=== PATIENT | male | born 1995 | race Caucasian/White ===

== ENCOUNTER 2016-04-11 06:41 | Emergency (ER) | payer BC, OTHER ==
[~2016-04-11] VITALS: Ht 182.9 cm; Wt 63.5 kg
[2016-04-11 06:46] VITALS: TEMP 36.4; Ht 182.9 cm; Wt 63.5 kg
[2016-04-11] MEDS ORDERED: SODIUM CHLORIDE 0.9% 1000ML 1,000 ML IV STA (07:15)
--- NOTE | 2016-04-11 07:21 | EMERGENCY ROOM VISIT NOTE ---
History First contact with patient: 06:54 Chief Complaint: ABDOMINAL PAIN Stated Complaint: ABDOMINAL PAIN Nursing Triage Summary: patient presents with c/o generalized abdominal pain/discomfort that began yesterday . worsened this morning at 0600. denies any nausea/vomiting. History of Present Illness The patient is a 20 year old male who presents to the Emergency Room with complaints of abdominal pain. The patient states that he has had diffuse, intermittent sharp pain in the abdomen since yesterday. He states that the pain lasts 1-2 seconds at a time. He states that the pain is rated a 10/10 at its worst and currently an 8/10. The patient states that he tried a probiotic and gas ex. He reports having similar episodes every 2-3 months. He states he has had imaging but nothing has ever been found. He has not ever had a colonoscopy. He denies any fevers, chills, ear ache or sore throat. He denies any pain in his chest or trouble breathing. He denies any nausea, vomiting, hematemesis, hematochezia. He denies any diarrhea. He states that his urine appeared orange on Sunday but that has resolved. The patient has a history of constipation as a child. He states that his last bowel movement was 2 days ago. Review of Systems A 10 system review of systems was completed with positives and pertinent negatives listed in the HPI. Past Medical/Surgical History Medical Problems: (1) Anxiety (2) Depression (3) Insomnia Family History Cancer Diabetes mellitus FHx: gallbladder disease Heart disease Hypertension Kidney disease Kidney stones Lung disease Social History Smoking Status: Never Smoker Drug Use: none Marital Status: single Housing Status: lives with roommate Occupation Status: [employer] student Current/Historical Medications No Active Prescriptions or Reported Meds Allergies Coded Allergies: Amoxicillin (Verified Allergy, Unknown, Neuro Symptoms, 04/11/16) Clavulanic Acid (Verified Allergy, Unknown, Neuro Symptoms, 04/11/16) Physical Exam Vital Signs Date Time Temp Pulse Resp B/P Pulse Ox O2 Delivery O2 Flow Rate FiO2 04/11/16 08:54 57 16 135/79 95 Room Air 04/11/16 08:03 54 16 132/84 100 Room Air 04/11/16 06:46 36.4 103 20 138/90 98 Room Air Physical Exam VITALS: Vitals are noted on the nurse's note and reviewed by myself. Vital signs stable. The patient is afebrile. GENERAL: This is a 20-year-old male, in no acute distress, nondiaphoretic, well- developed well-nourished. SKIN: The skin was without rashes, erythema, edema, or bruising. There is no tenting of the skin. Capillary reflex less than 2 seconds. HEAD: Normocephalic atraumatic. EARS: The external ears are normal in appearance. EYES: Pupils equal round and reactive to light and accommodation. Conjunctivae without injection, sclerae without icterus. Extraocular movements intact. NOSE: Patent, turbinates without inflammation or discharge. MOUTH: Mucous membranes moist. Tonsils are not enlarged. Pharynx without erythema or exudate. Uvula midline. Airway patent. Tongue does not deviate. NECK: Supple without nuchal rigidity. No JVD. HEART: Regular rate and rhythm without murmurs gallops or rubs. LUNGS: Clear to auscultation bilaterally without wheezes, rales or rhonchi.No retractions or accessory muscle use. ABDOMEN: Positive bowel sounds x 4. Soft, mild diffuse lower abdominal tenderness, without masses or organomegaly. Hinson sign negative. MUSCULOSKELETAL: No muscle atrophy, erythema, or edema noted. Full range of motion in all extremities. Normal gait. Strength 5/5 throughout. NEURO: Patient was alert and oriented to person place and time. No focal neurological deficits. Medical Decision & Procedures ER Provider Diagnostic Interpretation: PA CHEST RADIOGRAPH AND UPRIGHT AND SUPINE AP RADIOGRAPHS OF THE ABDOMEN CLINICAL HISTORY: Abdominal pain. COMPARISON STUDY: Chest radiograph December 26, 2015. FINDINGS: Lung volumes are normal. Lungs are clear. There is no pneumothorax or pleural effusion. Cardiac size is normal. Mediastinal contours are normal. There is no evidence of pulmonary edema. There is no free air. The bowel gas pattern is normal. There is a moderate amount of stool within the colon. IMPRESSION: 1. No free air or evidence of bowel obstruction. 2. Moderate amount of stool within the colon. 3. No acute cardiopulmonary findings. Laboratory Results 04/11/16 07:21 Red Blood Count 5.22, Mean Corpuscular Volume 86.8, Mean Corpuscular Hemoglobin 30.8, Mean Corpuscular Hemoglobin Concent 35.5, Mean Platelet Volume 10.2, Neutrophils (%) (Auto) 75.6, Lymphocytes (%) (Auto) 12.9, Monocytes (%) (Auto) 9.9, Eosinophils (%) (Auto) 1.0, Basophils (%) (Auto) 0.2, Neutrophils # (Auto) 6.36, Lymphocytes # (Auto) 1.08, Monocytes # (Auto) 0.83, Eosinophils # (Auto) 0.08, Basophils # (Auto) 0.02 04/11/16 07:21 Test 04/11/16 07:21 04/11/16 07:22 04/11/16 08:18 White Blood Count 8.40 K/uL (4.8-10.8) Red Blood Count 5.22 M/uL (4.7-6.1) Hemoglobin 16.1 g/dL (14.0-18.0) Hematocrit 45.3 % (42-52) Mean Corpuscular Volume 86.8 fL (80-100) Mean Corpuscular Hemoglobin 30.8 pg (25-34) Mean Corpuscular Hemoglobin Concent 35.5 g/dl (32-36) Platelet Count 165 K/uL (130-400) Mean Platelet Volume 10.2 fL (7.4-10.4) Neutrophils (%) (Auto) 75.6 % Lymphocytes (%) (Auto) 12.9 % Monocytes (%) (Auto) 9.9 % Eosinophils (%) (Auto) 1.0 % Basophils (%) (Auto) 0.2 % Neutrophils # (Auto) 6.36 K/uL (1.4-6.5) Lymphocytes # (Auto) 1.08 K/uL (1.2-3.4) Monocytes # (Auto) 0.83 K/uL (0.11-0.59) Eosinophils # (Auto) 0.08 K/uL (0-0.5) Basophils # (Auto) 0.02 K/uL (0-0.2) RDW Standard Deviation 39.1 fL (36.4-46.3) RDW Coefficient of Variation 12.2 % (11.5-14.5) Immature Granulocyte % (Auto) 0.4 % Immature Granulocyte # (Auto) 0.03 K/uL (0.00-0.02) Anion Gap 9.0 mmol/L (3-11) Est Creatinine Clear Calc Drug Dose 107.1 ml/min Estimated GFR () 127.2 Estimated GFR (Non- 109.8 BUN/Creatinine Ratio 16.1 (10-20) Calcium Level 9.4 mg/dl (8.5-10.1) Total Bilirubin 0.7 mg/dl (0.2-1) Aspartate Amino Transf (AST/SGOT) 12 U/L (15-37) Alanine Aminotransferase (ALT/SGPT) 19 U/L (12-78) Alkaline Phosphatase 84 U/L (45-117) Total Protein 7.3 gm/dl (6.4-8.2) Albumin 4.2 gm/dl (3.4-5.0) Globulin 3.1 gm/dl (2.5-4.0) Albumin/Globulin Ratio 1.4 (0.9-2) Lipase 187 U/L (73-393) Bedside Lactic Acid Venous 0.59 mmol/L (0.90-1.70) Urine Color YELLOW Urine Appearance CLEAR (CLEAR) Urine pH 7.0 (4.5-7.5) Urine Specific [place] 1.007 (1.000-1.030) Urine Protein NEG (NEG) Urine Glucose (UA) NEG (NEG) Urine Ketones NEG (NEG) Urine Occult Blood NEG (NEG) Urine Nitrite NEG (NEG) Urine Bilirubin NEG (NEG) Urine Urobilinogen NEG (NEG) Urine Leukocyte Esterase NEG (NEG) Medications Administered Medications (Trade) Dose Ordered Sig/June Route Start Time Stop Time Status Last Admin Dose Admin Sodium Chloride (Nss 1000ml) 1,000 ml @ 999 mls/hr Q1H1M STAT IV 04/11/16 07:15 04/11/16 08:15 DC 04/11/16 07:19 999 MLS/HR ED Course The patient was seen and examined. Previous visits were reviewed. The patient does not have a fever or leukocytosis. He is not anemic. He does not have any significant electrolyte abnormalities. Urinalysis does not reveal any urinary tract infection. Lactic acid was not elevated. Abdominal series reveals increased fecal load The patient presents with intermittent and recurrent diffuse abdominal pain. He does appear to have some degree of constipation. He does not have any localized abdominal pain, fever or leukocytosis. Acute appendicitis is considered less likely. I do not feel the patient has an acute abdomen. The patient was encouraged try Colace or MiraLAX. He would benefit from further evaluation and management with gastroenterology even the recurrence of his symptoms. He should return with any fevers, vomiting, localization of the pain or generalized worsening symptoms. The case was discussed with Dr. Barbosa who agrees with the assessment and treatment plan. Medical Decision DIFFERENTIAL DIAGNOSIS: Hepatitis, cholecystitis, cholangitis, biliary colic, pancreatitis, pneumonia, subdiaphragmatic abscess, appendicitis, inguinal hernia , nephrolithiasis, inflammatory bowel disease, mesenteric adenitis, peptic ulcer disease, GERD, gastritis, pancreatitis, myocardial infarction, pericarditis, ruptured aortic aneurysm, appendicitis, gastroenteritis, bowel obstruction, splenic infarct, diverticulitis, mesenteric ischemia, metabolic, peritonitis, among others. Impression Primary Impression: Constipation Additional Impression: Abdominal pain Departure Information Dispostion Home / Self-Care Condition GOOD Prescriptions No Active Prescriptions or Reported Meds Referrals No Doctor, Assigned (PCP) Marco A Galeano MD Patient Instructions Abdominal Pain, Constipation, My [employer] Additional Instructions Try an [id number] medication such as Colace or MiraLAX daily for 5-7 days Return to the ER with pain localizes to the right lower abdomen or the left lower abdomen, fevers or generalized worsening symptoms Contact gastroenterology to schedule a follow-up appointment for further evaluation and management Problem Qualifiers Primary Impression: Constipation Additional Impression: Abdominal pain Abdominal location: generalized Qualified Codes: R10.84 - Generalized abdominal pain
[2016-04-11 07:28] LABS: BASO % 0.2 %; BASO ABS # 0.02 K/uL (0-0.2); COMPLETE YES; HEMATOCRIT 45.3 % (42-52); IG% 0.4 %; LYMPH % 12.9 %; LYMPH ABS # 1.08 K/uL (1.2-3.4); MEAN CELL VOLUME 86.8 fL (80-100); MEAN CORPUSCULAR HEMOGLOBIN 30.8 pg (25-34); MEAN CORPUSCULAR HGB CONC 35.5 g/dl (32-36); MEAN PLATELET VOLUME 10.2 fL (7.4-10.4); MONO % 9.9 %; NEUT % 75.6 %; PLATELET COUNT 165 K/uL (130-400); RED BLOOD COUNT 5.22 M/uL (4.7-6.1)
[2016-04-11 07:45] LABS: BUN/CREATININE RATIO 16.1 (10-20); CALCIUM 9.4 mg/dl (8.5-10.1); CREATININE 0.98 mg/dl (0.60-1.40); POTASSIUM 4.1 mmol/L (3.5-5.1)
[2016-04-11 07:48] LABS: ALB/GLOB RATIO 1.4 (0.9-2)
--- NOTE | 2016-04-11 08:08 | DIAGNOSTIC IMAGING REPORT ---
PA CHEST RADIOGRAPH AND UPRIGHT AND SUPINE AP RADIOGRAPHS OF THE ABDOMEN CLINICAL HISTORY: Abdominal pain. COMPARISON STUDY: Chest radiograph December 26, 2015. FINDINGS: Lung volumes are normal. Lungs are clear. There is no pneumothorax or pleural effusion. Cardiac size is normal. Mediastinal contours are normal. There is no evidence of pulmonary edema. There is no free air. The bowel gas pattern is normal. There is a moderate amount of stool within the colon. IMPRESSION: 1. No free air or evidence of bowel obstruction. 2. Moderate amount of stool within the colon. 3. No acute cardiopulmonary findings. Electronically signed by: Devang Hoang M.D. 04/11/2016 8:07 AM Dictated Date/Time: 04/11/2016 8:01 AM
[2016-04-11 08:43] LABS: URINE APPEARANCE CLEAR (CLEAR); URINE BILIRUBIN NEG (NEG); URINE COLOR YELLOW; URINE NITRITE NEG (NEG); URINE SPECIFIC GRAVITY 1.007 (1.000-1.030); UROBILINOGEN NEG (NEG); ZZUR CULT IF INDIC CLEAN CATCH NO
[2016-04-11 08:45] LABS: MANUAL MICROSCOPIC REQUIRED? NO; REVIEW REQ? NO
[2016-04-11 08:54] VITALS: BP 135/79; PULSE 57; O2SAT 95
== END 2016-04-11 08:58 | disposition home or self-care (01) ==
LOC: C.EDB 06:42
DX: K59.00 Constipation, unspecified (principal); R10.9 Unspecified abdominal pain; Z88.1 Allergy status to other antibiotic agents; Z80.9 Family history of malignant neoplasm, unspecified; Z83.3 Family history of diabetes mellitus; Z82.49 Family history of ischemic heart disease and other diseases of the circulatory system; Z84.1 Family history of disorders of kidney and ureter